=== PATIENT | male | born 1985 | race Caucasian/White ===

== ENCOUNTER 2024-06-30 20:18 | Emergency (ER) | payer OTHER ==
[2024-06-30 20:25] VITALS: TEMP 98.9; BMI 29.2
[2024-06-30 21:28] LABS: BASO % 0.2 % (0-2.0); EOS % 1.7 % (0-4.5); HEMOGLOBIN 13.1 GM/dL (11.7-16.9); LYMPH % 20.2 % (8-40); MCHC 32.7 g/dl (32.0-35.9); MEAN CELL VOLUME 76.4 fl (80-96); MONO % 10.2 % (3.8-10.2); NEUT % 67.7 % (42.8-82.8); PLATELET COUNT 259 10^3/uL (134-434); RBC 5.24 M/mm3 (4.00-5.60); RDW 14.7 % (11.9-15.9); WHITE BLOOD COUNT 8.7 K/mm3 (4.0-10.0)
[2024-06-30] MEDS ORDERED: FAMOTIDINE 20 MG/50 ML IVPB 20 MG/50 ML MG IVPB ONE (21:28)
[2024-06-30] MEDS ORDERED: MAG HYDROX/AL HYDROX/SIMETH 30 ML UNIT-DOSE CUP ONE (21:28)
[2024-06-30] MEDS ORDERED: PANTOPRAZOLE SODIUM 40 MG VIAL ONE (21:28)
[2024-06-30 21:47] LABS: POTASSIUM 4.1 mmol/L (3.5-5.1)
[2024-06-30 21:49] LABS: ALBUMIN 4.3 g/dl (3.4-5.0); CALCIUM 9.5 mg/dL (8.5-10.1)
[2024-06-30 21:50] LABS: BLOOD UREA NITROGEN 11.3 mg/dL (7-18)
[2024-06-30] MEDS: LACTATED RINGERS SOLUTION 1000 ML INFUS.BAG IV ONE (21:50)
[2024-06-30] MEDS: PANTOPRAZOLE SODIUM 40 MG VIAL IVPUSH ONE (21:50)
[2024-06-30] MEDS: MAG HYDROX/AL HYDROX/SIMETH 30 ML UNIT-DOSE CUP PO ONE (21:51)
[2024-06-30] MEDS: FAMOTIDINE 20 MG/50 ML IVPB 20 MG/50 ML MG IVPB ONE (21:51)
[2024-06-30 21:53] LABS: CREATININE 0.9 mg/dL (0.55-1.3)
[2024-06-30 21:54] LABS: BILIRUBIN,TOTAL 0.3 mg/dL (0.2-1); TOT PROT 7.8 g/dl (6.4-8.2)
[2024-06-30] MEDS ORDERED: DEXAMETHASONE SOD PHOSPHATE 10 MG/1 ML VIAL ONE (23:41)
[2024-06-30] MEDS: DEXAMETHASONE SOD PHOSPHATE 10 MG/1 ML VIAL IVPUSH ONE (23:52)
[2024-07-01 00:09] VITALS: BP 125/81; PULSE 77; RESP 16
== END 2024-07-01 00:09 | disposition home or self-care (01) ==
LOC: JER 20:18
PROC: 3E033GC Introduction of Other Therapeutic Substance into Peripheral Vein, Percutaneous Approach (ICD-10-PCS; principal; 2024-06-30)
PROC: 3E033GC Introduction of Other Therapeutic Substance into Peripheral Vein, Percutaneous Approach (ICD-10-PCS; 2024-06-30)
PROC: 3E033GC Introduction of Other Therapeutic Substance into Peripheral Vein, Percutaneous Approach (ICD-10-PCS; 2024-06-30)
DX: K52.9 Noninfective gastroenteritis and colitis, unspecified (principal); R10.30 Lower abdominal pain, unspecified
CPT/HCPCS: 36415; 74177-TC; 80053; 83690; 85025; 86850; 86900; 86901; 99285-25; J1100; Q9967